=== PATIENT | male | born 1980 | race Caucasian/White ===

== ENCOUNTER → 2020-01-04 14:41 | Outpatient (BNVA) | payer OTHER, SELFPAY | PROVIDERS: Family Provider Physician Assistant; PCP Physician Assistant; Visit Provider Nurse Practitioner Psychiatric/Mental Health | DX: F51.01 Primary insomnia (principal); F90.2 Attention-deficit hyperactivity disorder, combined type; F33.1 Major depressive disorder, recurrent, moderate | CPT/HCPCS: 99214 ==

== ENCOUNTER → 2020-01-26 14:05 | Outpatient (BNVA) | payer OTHER, SELFPAY | PROVIDERS: Family Provider Physician Assistant; PCP Physician Assistant; Visit Provider Orthopaedic Surgery | DX: M25.532 Pain in left wrist (principal); Z48.89 Encounter for other specified surgical aftercare | CPT/HCPCS: 73110 ==

== ENCOUNTER → 2020-02-08 15:08 | Outpatient (BNVA) | payer OTHER, SELFPAY | PROVIDERS: Family Provider Physician Assistant; PCP Physician Assistant; Visit Provider Nurse Practitioner Psychiatric/Mental Health | DX: F51.01 Primary insomnia (principal); F90.2 Attention-deficit hyperactivity disorder, combined type; F33.1 Major depressive disorder, recurrent, moderate | CPT/HCPCS: 99214 ==

== ENCOUNTER 2020-02-11 06:15 | Day surgery (SDC) | payer OTHER, SELFPAY ==
[2020-02-10 13:43] VITALS: BMI 34.5
[2020-02-11] VITALS (7 sets, daily range): BP systolic 112–146; BP diastolic 71–89; PULSE 57–69; RESP 12–20; TEMP 36.3–36.6; O2SAT 96–100
--- NOTE | 2020-02-11 | XR_ITS ---
WS: [id number] XR wrist LT 1V [id number] REASON FOR EXAM: ORIF WRIST. CARPECTOMY FINDINGSCarpectomy performed absence of the scaphoid lunate triangularis. C-arm images were utilized for the procedure. XR/XR wrist LT 1V [id number] IMPRESSION: Carectomy utilizing C-arm images.
--- NOTE | 2020-02-11 | SCC_ITS ---
Procedure Done: Left wrist proximal row carpectomy 1.9 seconds of fluoroscopic guidance, for a cumulative dose of 0.05 mGy, was provided to Dr. Hermosillo by the radiology department. C-arm images of the left wrist were saved for the patient's permanent record. GEMINI
[2020-02-11] MEDS: sodium chloride 0.9% 1,000 ML 30 ML IV (06:39)
--- NOTE | 2020-02-11 06:58 | W.PM.OPSUD ---
Surgery/Procedure H&P Update DATE OF PROCEDURE: February 11, 2020 DATE H&P PERFORMED: 01/26/20 H&P UPDATE INFORMATION: I have reviewed H&P completed within last 30 days and I have examined patient prior to procedure PREOP DIAGNOSIS: Left SLAC wrist PRIMARY INDICATION FOR PROCEDURE: failed SL ligament repair PLANNED PROCEDURE: Operation Date: 02/11/20 08:10 Proposed Procedures p Left wrist proximal row Carpectomy 86749 S63.8X9A(Left) - Hayden Hermosillo DO
[2020-02-11] MEDS: gabapentin 300 mg Capsule PO (07:02)
--- NOTE | 2020-02-11 07:12 | ANES.PREANE2 ---
Pre-Anesthetic Assessment Pre-Anesthetic Assessment: Height/Weight: Height 1.85 m Weight 118.841 kg Temp Pulse Resp BP Pulse Ox 97.9 F 69 20 H 146/89 96 02/11/20 06:27 02/11/20 06:27 02/11/20 06:27 02/11/20 06:27 02/11/20 06:27 Preop Diagnosis: Left SLAC wrist Proposed Procedure: Operation Date: 02/11/20 08:10 Proposed Procedures p Left wrist proximal row Carpectomy 88832 S63.8X9A(Left) - Hayden Hermosillo DO Last intake: Intake Last Liquid Date 02/10/20 Last Liquid Time 19:00 Last Solid Date 02/10/20 Last Solid Time 19:00 Social: Packs per day: 1 Pack years: 25 Comment: quit 4 years Exam: Pre-Anes Outpt Exam: alert, oriented x 3, clear to auscultation bilaterally and regular rate & rhythm Airway: Submandibular: WNL Cervical ROM: WNL MP: 1 Pulmonary: Pulmonary: Sleep apnea Neuropsych: Neuropsych: Depression Anesthetic Plan: ASA status: 3 Anesthesia: General and Regional (specify below) Meds/Allergies Current Medications: Current Medications Generic Name Dose Route Start Last Admin Trade Name Freq PRN Reason Stop Dose Admin Sodium Chloride 1,000 mls @ 30 ml s/hr 02/11/20 06:30 02/11/20 06:39 Sodium Chloride 0.9% IV 02/12/20 06:29 30 mls/hr .Q24H DAMON Administration PFSH Anesthesia PFSH: Social History Smoking and tobacco status: former smoker Alcohol intake: current Alcohol intake frequency: holidays/special occasions only Household members: significant other and children Marital status: Life Partner Data Anesthesia Cardiac Studies: No Data to Display
[2020-02-11] MEDS: midazolam 1 mg/mL INJ 5 ML 5 MG IVP (07:25)
[2020-02-11] MEDS: fentaNYL 50 mcg/mL INJ 2mL 100 MCG IVP (07:27)
--- NOTE | 2020-02-11 07:34 | ANES.PROC ---
Anesthesia Procedures Procedure/Date: 02/11/20 Left Axillary Nerve Block Procedure Narrative: R&B's of left axillary nerve block for postop pain mx disc'd. Verbal and written consent obtained. Versed 2+1+1+1mg, Fentanyl 50+25ug. Nerve Stimulator at 0.8m AMPS. 30cc total volume Ropvicaine 0.5% + Lido 2% with epi in 3:1 ratio in 5cc increments without problems/complications Nerve Block ^: Nerve Block 1: Main Anesthesia: general anesthesia Time Out Performed: Yes Consent: requested by attending/covering physician, from patient, risks and benefits reviewed and patient agrees to proceed Nerve block location: axillary Anesthesia monitors applied: pulse oximetry and oxygen Nerve block position: supine Anesthetic Used: lidocaine 2%, ropivicaine 0.5% and with epi Amount of anesthesia used (mL): 30 Ultrasound used to: other Nerve Stimulator Used?: Yes Interscalene/Femoral BLK: 2 stimuplex 22 g needle used for position and inplane approach, visualize local anesthetic spread and no vascular puncture identified Injection: neg aspiration of heme Patient Tolerated Procedure: well and no complications Complications: none
[2020-02-11] MEDS: cefUROXime 1,500 MG in sodium chloride 0.9% (plus) 50 ML 100 MG IV (09:04)
--- NOTE | 2020-02-11 09:07 | P.OP_ITS ---
Operative Report Date of procedure: February 11, 2020 Pre-op Diagnosis: Left SLAC wrist Post-op diagnosis: same Post-op Findings: Failed scapholunate ligament repair resulting in SLAC wrist Procedure Done: Left wrist proximal row carpectomy Specimens removed/disposition: Scaphoid, lunate and triquetrum Pathology: none sent Surgeon: Hayden Hermosillo Anesthesia: General and Nerve Block (Preoperative axillary nerve block for postoperative analgesia) Estimated blood loss (mL): 10 Tourniquet time (min): 78 (at 250 mm Hg) Complications: No apparent complications Condition: stable Disposition: PACU (Then home) Brief History: 39-year-old white male who had sustained a left wrist scaphol unate ligament tear. He underwent reconstruction. In the postoperative period he is developed increasing pain and x-ray showed loss of reduction with widening once again of the scapholunate interval. Essentially he now has a slack wrist. I recommended to the patient he undergo proximal row carpectomy as a salvage procedure that would allow him to maintain motion of his wrist. This of surgery later noted to failure to leave all pain, stiffness, nerve/blood vessel/tendon injury, possible need for further surgery at a later date such as wrist fusion. All questions were answered patient agreeable to proceed with surgery. Procedure: 1.5 g Zinacef Patient identified. Surgical site signed. Surgical permit signed. Patient received an axillary nerve block for postoperative analgesia in the preoperative holding area. He received 1.5 g of Zinacef for antimicrobial prophylaxis. The patient was taken to the operating room. He was transferred to the operating room table. He was then placed under general anesthesia. A tourniquet was placed but the upper aspect of the right upper extremity. The right upper extremity was then sterilely prepped and draped usual fashion. A time out was performed. The operative limb was exsanguinated using Esmarch bandage and the tourniquet inflated to 250 mmHg pressure. A 15 cm dorsal midline incision was made over the left wrist using the previously used incision with a skin knife. Full-thickness skin flaps were made. Crossing veins were coagulated with bipolar cautery. We incised the extensor retinaculum. Extensor tendons were retracted radially and ulnarly. the dorsal wrist capsule nife followed by subperiosteal and capsular elevation was then performed radially and ulnarly at the distal radius and the proximal row of carpal bones radially and ulnarly. We applied 10 pounds of traction to the index and long fingers of the right hand. We removed sutures and broken suture anchors from the previous surgery. We then removed the scaphoid followed by the lunate then followed by the triquetrum. Fluoroscopic imaging demonstrated satisfactory resection of the proximal row of carpal bones. We visualized the intact flexor carpi radialis tendon, the radioscaphocapitate ligament and the articular surface of the pisiform. The cartilage of the head of the capitate was intact. The wound is irrigated with Betadine-containing saline solution followed by antibiotic containing saline solution. Traction was removed from the digits. Capsular closure was performed with sutures of 4-0 FiberWire. Extensor retinaculum closures performed with sutures of 3-0 undyed Vicryl. Skin was then closed with sutures of 3-0 undyed Vicryl followed by 4-0 nylon on skin. Antibiotic ointment was applied to the incision line followed by sterile dressings and a volar plaster splint was applied. The tourniquet was deflated during application of dressings. The patient was aroused from general anesthesia. He was taken to recovery room. He tolerated the procedure well. All instrument, needle and sponge counts were correct.
[2020-02-11] MEDS: neomycin-poly-bacitracin oint 28 gm 1 APPLIC TOPICAL (10:33)
== END 2020-02-11 11:53 | disposition home or self-care (01) ==
PROVIDERS: Family Provider Physician Assistant; PCP Physician Assistant; Visit Provider Orthopaedic Surgery
PROC: (CPT 25215; principal; 2020-02-11 08:10)
DX: M19.132 Post-traumatic osteoarthritis, left wrist (principal); F17.210 Nicotine dependence, cigarettes, uncomplicated; G47.30 Sleep apnea, unspecified
CPT/HCPCS: 25215; 12345; 73100; 76000; 96365; 96374; 96375; J0131; J0697; J1100; J1580; J2001; J2250; J2405; J2704; J2795; J3010; J3490; J7030

== ENCOUNTER → 2020-02-25 08:56 | Outpatient (BNVA) | payer OTHER, SELFPAY | PROVIDERS: Family Provider Physician Assistant; PCP Physician Assistant; Visit Provider Orthopaedic Surgery | DX: Z48.89 Encounter for other specified surgical aftercare (principal); M19.139 Post-traumatic osteoarthritis, unspecified wrist | CPT/HCPCS: 73110 ==

== ENCOUNTER → 2020-03-22 08:10 | Outpatient (BNVA) | payer OTHER, SELFPAY | PROVIDERS: Family Provider Physician Assistant; PCP Physician Assistant; Visit Provider Nurse Practitioner Psychiatric/Mental Health | DX: F51.01 Primary insomnia (principal); F90.2 Attention-deficit hyperactivity disorder, combined type; F33.1 Major depressive disorder, recurrent, moderate; F41.0 Panic disorder [episodic paroxysmal anxiety] | CPT/HCPCS: 99214 ==

== ENCOUNTER → 2020-04-06 07:59 | Outpatient (BNVA) | payer OTHER, SELFPAY | PROVIDERS: Family Provider Physician Assistant; PCP Physician Assistant; Visit Provider Orthopaedic Surgery | DX: Z48.89 Encounter for other specified surgical aftercare (principal); M19.139 Post-traumatic osteoarthritis, unspecified wrist | CPT/HCPCS: 73110 ==

== ENCOUNTER 2020-04-10 14:39 | Outpatient (RCR) | payer OTHER, SELFPAY | END 2020-04-23 23:59 | disposition home or self-care (01) | LOC: SOT 14:39 | PROVIDERS: PCP Physician Assistant; Referring Provider Orthopaedic Surgery; Visit Provider Orthopaedic Surgery | DX: M25.832 Other specified joint disorders, left wrist (principal) | CPT/HCPCS: 97035; 97110; 97140; 97166; 97530 ==

== ENCOUNTER → 2020-04-20 08:22 | Outpatient (BNVA) | payer OTHER, SELFPAY | PROVIDERS: PCP Physician Assistant; Visit Provider Nurse Practitioner Psychiatric/Mental Health | DX: F33.1 Major depressive disorder, recurrent, moderate (principal); F51.01 Primary insomnia; F90.2 Attention-deficit hyperactivity disorder, combined type | CPT/HCPCS: 99213 ==

== ENCOUNTER 2020-04-24 06:00 | Outpatient (RCR) | payer OTHER, SELFPAY | END 2020-05-09 23:00 | disposition home or self-care (01) | LOC: SOT 06:00 | PROVIDERS: PCP Physician Assistant; Visit Provider Orthopaedic Surgery | DX: Z47.89 Encounter for other orthopedic aftercare (principal) | CPT/HCPCS: 97035; 97140 ==

== ENCOUNTER 2020-05-15 15:51 | Outpatient (CLI) | payer OTHER, SELFPAY | END 2020-05-15 15:52 | disposition home or self-care (01) | LOC: SPT 15:52 | PROVIDERS: PCP Physician Assistant; Visit Provider Podiatrist Foot & Ankle Surgery | DX: Z47.89 Encounter for other orthopedic aftercare (principal) | CPT/HCPCS: L3030 ==

== ENCOUNTER → 2020-06-15 08:30 | Outpatient (BNVA) | payer OTHER, SELFPAY | PROVIDERS: PCP Physician Assistant; Visit Provider Nurse Practitioner Psychiatric/Mental Health | DX: F33.1 Major depressive disorder, recurrent, moderate (principal); F51.01 Primary insomnia; F90.2 Attention-deficit hyperactivity disorder, combined type | CPT/HCPCS: 99213 ==

== ENCOUNTER → 2020-06-29 08:25 | Outpatient (BNVA) | payer OTHER, SELFPAY | PROVIDERS: PCP Physician Assistant; Referring Provider Orthopaedic Surgery; Visit Provider Psychiatry & Neurology Neurology | DX: L21.9 Seborrheic dermatitis, unspecified (principal); L70.0 Acne vulgaris; G56.01 Carpal tunnel syndrome, right upper limb; Z87.891 Personal history of nicotine dependence | CPT/HCPCS: 95885; 95909; 99203 ==

== ENCOUNTER → 2020-08-10 08:10 | Outpatient (BNVA) | payer OTHER, SELFPAY | PROVIDERS: PCP Physician Assistant; Visit Provider Dermatology | DX: D48.5 Neoplasm of uncertain behavior of skin (principal); L40.8 Other psoriasis; L70.0 Acne vulgaris | CPT/HCPCS: 11102; 88304; 99213; 99214 ==

== ENCOUNTER → 2020-09-15 13:45 | Outpatient (BNVA) | payer OTHER, SELFPAY | PROVIDERS: PCP Physician Assistant; Visit Provider Orthopaedic Surgery | DX: Z11.59 Encounter for screening for other viral diseases (principal) | CPT/HCPCS: 87635 ==

== ENCOUNTER → 2020-09-18 08:24 | Outpatient (BNVA) | payer OTHER, SELFPAY | PROVIDERS: PCP Physician Assistant; Visit Provider Nurse Practitioner Psychiatric/Mental Health | DX: F33.1 Major depressive disorder, recurrent, moderate (principal); F51.01 Primary insomnia; F90.2 Attention-deficit hyperactivity disorder, combined type | CPT/HCPCS: 99213 ==

== ENCOUNTER 2020-09-21 08:17 | Day surgery (SDC) | payer OTHER, SELFPAY ==
[2020-09-20 12:13] VITALS: BMI 36.9
[2020-09-21 08:28] VITALS: BP 137/104; PULSE 63; RESP 18; TEMP 37.1; O2SAT 96
[2020-09-21] MEDS: sodium chloride 0.9% 1,000 ML 30 ML IV (08:38)
--- NOTE | 2020-09-21 09:25 | ANES.PREANE2 ---
Pre-Anesthetic Assessment Pre-Anesthetic Assessment: Height/Weight: Height 1.85 m Weight 127.006 kg Temp Pulse Resp BP Pulse Ox 98.8 F 63 18 137/104 96 09/21/20 08:28 09/21/20 08:28 09/21/20 08:28 09/21/20 08:28 09/21/20 08:28 Preop Diagnosis: Right carpal tunnel Proposed Procedure: Operation Date: 09/21/20 09:55 Proposed Procedures p Right Carpal Tunnel Release 21220 G56.01(Right) - Carmelo Miller MD Familial anesthetic complications: None Was Beta Shae taken within 24 hours: N/A Last intake: Intake Last Liquid Date 09/20/20 Last Liquid Time 20:00 Last Solid Date 09/20/20 Last Solid Time 17:00 Social: Social History: No alcohol and No tobacco Exam: Pre-Anes Outpt Exam: alert, oriented x 3, clear to auscultation bilaterally and regular rate & rhythm Airway: Cervical ROM: WNL MP: 3 Dentition: Full Pulmonary: Pulmonary: Sleep apnea (cpap) Metabolic: Metabolic: Morbid obesity Neuropsych: Neuropsych: Anxiety (takes propanol and zoloft) Anesthetic Plan: ASA status: 2 Anesthesia: MAC and Regional (specify below) ([place]vis block ) Risk of > 500 ml blood loss (7ml/kg in children): No PFSH Anesthesia PFSH: Medical History ADHD Attention-deficit hyperactivity disorder, combined type Major depressive disorder, recurrent episode, moderate with anxious distress Primary insomnia SLAC (scapholunate advanced collapse) of wrist Status post proximal row carpectomy of wrist Surgical History History of knee surgery History of toe surgery History of tonsillectomy Family History Mother Cancer Other CAD (coronary artery disease) Diabetes Hypertension Social History Smoking and tobacco status: former smoker Alcohol intake: current Alcohol intake frequency: holidays/special occasions only Household members: significant other and children Marital status: Life Partner History of recent travel: No Data Anesthesia Cardiac Studies: No Data to Display
--- NOTE | 2020-09-21 10:39 | W.PM.OPSFHP ---
Same Day Surgery H&P Indication for Procedure/HPI DATE OF PROCEDURE: September 21, 2020 CHIEF COMPLAINT/INDICATIONFOR SURGICAL PROCEDURE: Right carpal tunnel syndrome. This in pain right upper extremity PREOP DIAGNOSIS: Right carpal tunnel PLANNED PROCEDRUE: Operation Date: 09/21/20 09:55 Proposed Procedures p Right Carpal Tunnel Release 53807 G56.01(Right) - Carmelo Miller MD Medications/Allergies* Home Medications Medication Instructions Recorded Confirmed Type naproxen sodium 220 mg tablet 220 mg PO BID PRN 04/06/20 09/21/20 History Allergies/Adverse Reactions Allergy/AdvReac Type Severity Reaction Status Date / Time desvenlafaxine [From Pristiq] Allergy Unknown Unknown Verified 09/21/20 08:25 venlafaxine [From Effexor] Allergy Unknown short of Verified 09/21/20 08:25 breath ziprasidone [From Geodon] Allergy Unknown short of Verified 09/21/20 08:25 breath Pertinent History/Comorbid Conditions* Medical History (Updated 06/29/20 @ 09:20 by Bossman Lin MD) ADHD Attention-deficit hyperactivity disorder, combined type Major depressive disorder, recurrent episode, moderate with anxious distress Primary insomnia SLAC (scapholunate advanced collapse) of wrist Status post proximal row carpectomy of wrist Surgical History (Updated 01/10/20 @ 22:07 by Cooper Babcock DPM) History of knee surgery History of toe surgery History of tonsillectomy Family History (Updated 06/29/20 @ 13:37 by Lilly Duenas LPN) Diabetes CAD (coronary artery disease) Cancer Mother Hypertension Social History Smoking and tobacco status: former smoker Alcohol intake: current Alcohol intake frequency: holidays/special occasions only Household members: significant other and children Marital status: Life Partner History of recent travel: No Pertinent Exam Findings alert, oriented x 3, clear to auscultation bilaterally, regular rate & rhythm, operative site marked and procedure specific exam findings (Unchanged from July exam) Recommendations Surgery/Procedure today Coding Level of Care Code Acute 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
--- NOTE | 2020-09-21 11:29 | PM.OP ---
Operative Report Date of procedure: September 21, 2020 Pre-op Diagnosis: Right carpal tunnel Post-op diagnosis: same Post-op Findings: Same Procedure Done: Right carpal tunnel release Specimens removed/disposition: None Pathology: none sent Surgeon: Carmelo Miller Anesthesia: Nerve Block ([place] block) Estimated blood loss (mL): 2 Tourniquet time (min): 20 Findings: No masses or space-occupying lesions were seen within the carpal tunnel Condition: stable Brief History: Geoffrey had a history of numbness and pain in the right hand with EMG nerve conduction study suggesting mild carpal tunnel. He failed a corticosteroid injection. He has significant pain and limitations wishing to proceed with carpal tunnel release Procedure: Patient was taken to the operating room and anesthesia provided by the anesthesia service. She was prepped and draped with the arm exposed. A timeout was performed. A 3 cm long incision was made in line with the fourth ray from the distal edge of the carpal tunnel extending proximally. The subcutaneous fat and palmar fascia was divided with a scalpel blade. Under loupe magnification the ulnar neurovascular bundle was identified distally. A hemostat could be passed under the transverse carpal ligament allowing the distal 25% to be divided. A slotted guide was then passed beneath the transverse carpal ligament and the middle 50% divided. Blunt scissors were then passed over the guide freeing the proximal ligament. The tourniquet was deflated. Hemostasis provided with electrocautery. Wound edges were infiltrated with 10 cc of a half percent Marcaine solution. Skin edges were reapproximated with 3-0 Prolene. Sterile dressings were applied. The patient was taken to the recovery room in stable condition
[2020-09-21 11:33] VITALS: BP 107/70; PULSE 70; RESP 18; TEMP 36.1; O2SAT 98
[2020-09-21] MEDS: HYDROcodone-acetaminophen 5-325 mg Tablet 1 TAB PO (11:57)
[2020-09-21 12:00] VITALS: BP 120/87; PULSE 68; RESP 18; O2SAT 99
--- NOTE | 2020-09-21 12:10 | ANE.PACU2 ---
Inpatient post-anesthesia follow up: Airway intact: Yes Vital signs: Temperature 97.0 F Pulse Rate 68 Respiratory Rate 18 Blood Pressure 120/87 Pulse Oximetry 99 Oxygen Delivery Me thod Room Air Oxygen Flow Rate Fraction of Inspir ed Oxygen Hydration adequate: Yes Nausea and vomiting: No Pain level: 2 Mental status: Baseline
== END 2020-09-21 12:09 | disposition home or self-care (01) ==
PROVIDERS: PCP Physician Assistant; Visit Provider Orthopaedic Surgery
PROC: (CPT 64721; principal; 2020-09-21 09:55)
DX: G56.01 Carpal tunnel syndrome, right upper limb (principal); G47.30 Sleep apnea, unspecified; E66.01 Morbid (severe) obesity due to excess calories; Z68.36 Body mass index [BMI] 36.0-36.9, adult; F41.9 Anxiety disorder, unspecified; Z87.891 Personal history of nicotine dependence; Z82.49 Family history of ischemic heart disease and other diseases of the circulatory system; Z83.3 Family history of diabetes mellitus
CPT/HCPCS: 64721; 12345; 96365; J0690; J2250; J2704; J3010; J3490; J7030

== ENCOUNTER → 2020-12-05 08:23 | Outpatient (BNVA) | payer OTHER, SELFPAY | PROVIDERS: PCP Physician Assistant; Visit Provider Nurse Practitioner Psychiatric/Mental Health | DX: F33.1 Major depressive disorder, recurrent, moderate (principal); F51.01 Primary insomnia; F90.2 Attention-deficit hyperactivity disorder, combined type | CPT/HCPCS: 99213 ==

== ENCOUNTER → 2021-02-27 09:22 | Outpatient (BNVA) | payer OTHER, SELFPAY | PROVIDERS: PCP Physician Assistant; Visit Provider Nurse Practitioner Psychiatric/Mental Health | DX: F33.1 Major depressive disorder, recurrent, moderate (principal); F51.01 Primary insomnia; F90.2 Attention-deficit hyperactivity disorder, combined type; Z03.89 Encounter for observation for other suspected diseases and conditions ruled out; I44.0 Atrioventricular block, first degree | CPT/HCPCS: 99214 ==

== ENCOUNTER 2021-02-28 08:22 | Outpatient (CLI) | payer OTHER, SELFPAY ==
--- NOTE | 2021-02-28 08:48 | ECG_ITS ---
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
[2021-02-28 09:22] LABS: Estmated Average Glucose 103; Hemoglobin A1C 5.2 % (4.0-6.0)
[2021-02-28 09:33] LABS: Troponin T (5th) Once 7 ng/L (0-15)
[2021-02-28 09:41] LABS: Alanine Aminotransferase 38 U/L (0-41); Albumin Level 4.3 g/dL (3.5-5.2); Alkaline Phosphatase 77 IU/L (40-130); Aspartate Amino Transferase 25 U/L (0-40); Blood Urea Nitrogen 13 mg/dL (6-20); Calcium 9.4 mg/dL (8.5-10.5); Carbon Dioxide 24 mmol/L (22-29); Chloride 106 mmol/L (98-107); Chol HDL Ratio 6.34 mg/dL (1.0-5.00); Cholesterol 203 mg/dL (0-200); Globulin 2.8 g/dL (1.3-4.6); Glomerular Filtration Rate 92.5 mL/min (90-130); Glucose 103 mg/dL (65-115); HDL Cholesterol 32 mg/dL (60-100); LDL Cholesterol Calculated 142 mg/dL (50-129); LDL HDL Ratio 4.44 RATIO (0.00-3.22); Osmolality Calculated 286 mOsm/kg (285-295); Sodium 138 mmol/L (136-145); Thyroid Stimulating Hormone 1.42 uIU/mL (0.27-4.20); Total Bilirubin 0.4 mg/dL (0.15-1.2); Total Protein 7.1 g/dL (6.6-8.7); Triglycerides 146 mg/dL (0-150)
== END 2021-02-28 08:23 | disposition home or self-care (01) ==
PROVIDERS: PCP Physician Assistant; Visit Provider Nurse Practitioner Psychiatric/Mental Health
DX: Z03.89 Encounter for observation for other suspected diseases and conditions ruled out (principal); I45.10 Unspecified right bundle-branch block
CPT/HCPCS: 36415; 80053; 80061; 83036; 84443; 84484; 93005

== ENCOUNTER → 2021-03-15 08:07 | Outpatient (BNVA) | payer OTHER, SELFPAY | PROVIDERS: PCP Physician Assistant; Visit Provider Nurse Practitioner Psychiatric/Mental Health | DX: F33.1 Major depressive disorder, recurrent, moderate (principal); F51.01 Primary insomnia; F90.2 Attention-deficit hyperactivity disorder, combined type | CPT/HCPCS: 99214 ==

== ENCOUNTER 2021-03-19 10:39 | Outpatient (CLI) | payer OTHER, SELFPAY ==
--- NOTE | 2021-03-19 11:07 | ECG_ITS ---
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
== END 2021-03-19 10:40 | disposition home or self-care (01) ==
LOC: RT 10:43
PROVIDERS: PCP Physician Assistant; Visit Provider Nurse Practitioner Psychiatric/Mental Health
DX: Z03.89 Encounter for observation for other suspected diseases and conditions ruled out (principal)
CPT/HCPCS: 93005

== ENCOUNTER → 2021-03-20 07:29 | Outpatient (BNVA) | payer OTHER, SELFPAY | PROVIDERS: PCP Physician Assistant; Visit Provider Nurse Practitioner Psychiatric/Mental Health | DX: F33.1 Major depressive disorder, recurrent, moderate (principal); F51.01 Primary insomnia; F90.2 Attention-deficit hyperactivity disorder, combined type | CPT/HCPCS: 99214 ==

== ENCOUNTER → 2021-04-10 08:36 | Outpatient (BNVA) | payer OTHER, SELFPAY | PROVIDERS: PCP Physician Assistant; Visit Provider Nurse Practitioner Psychiatric/Mental Health | DX: F33.1 Major depressive disorder, recurrent, moderate (principal); F51.01 Primary insomnia; F90.2 Attention-deficit hyperactivity disorder, combined type | CPT/HCPCS: 99214 ==

== ENCOUNTER → 2021-11-05 08:39 | Outpatient (BNVA) | payer OTHER, SELFPAY | PROVIDERS: PCP Physician Assistant; Visit Provider Internal Medicine | DX: Z01.812 Encounter for preprocedural laboratory examination (principal); R10.13 Epigastric pain | CPT/HCPCS: 87635 ==

== ENCOUNTER 2021-11-09 09:34 | Day surgery (SDC) | payer OTHER, SELFPAY ==
[2021-11-07 14:13] VITALS: BMI 31.6
--- NOTE | 2021-11-09 09:50 | ANES.PREANE2 ---
Pre-Anesthetic Assessment Pre-Anesthetic Assessment: Height/Weight: Height 1.85 m Weight 108.862 kg Preop Diagnosis: Epigastric pain Proposed Procedure: Operation Date: 11/09/21 11:45 Proposed Procedures p EGD 47056 R10.13(Not Applicable) - Brendon Barillas MD Was Beta Shae taken within 24 hours: Yes Was Clonidine taken within 24 hours: N/A Social: Social History: No alcohol and No tobacco Exam: Pre-Anes Outpt Exam: alert, oriented x 3, clear to auscultation bilaterally and regular rate & rhythm Airway: Submandibular: WNL Cervical ROM: WNL MP: 2 Dentition: Full GI: GI: GERD Neuropsych: Neuropsych: Anxiety and Depression Anesthetic Plan: ASA status: 2 Anesthesia: MAC Risk of > 500 ml blood loss (7ml/kg in children): No PFSH Anesthesia PFSH: Medical History ADHD Attention-deficit hyperactivity disorder, combined type Major depressive disorder, recurrent episode, moderate with anxious distress Primary insomnia Psychiatric care SLAC (scapholunate advanced collapse) of wrist Status post proximal row carpectomy of wrist Surgical History History of knee surgery History of toe surgery History of tonsillectomy Family History Mother Cancer Other CAD (coronary artery disease) Diabetes Family history of premature coronary artery disease Hypertension Social History Smoking and tobacco status: former smoker Alcohol intake: current Alcohol intake frequency: holidays/special occasions only Household members: significant other and children Marital status: Life Partner History of recent travel: No Data Anesthesia Cardiac Studies: No Data to Display
[2021-11-09 10:51] VITALS: BP 138/90; PULSE 70; RESP 20; TEMP 36.5; O2SAT 98
[2021-11-09] MEDS: sodium chloride 0.9% 1,000 ML 30 ML IV (11:10)
--- NOTE | 2021-11-09 12:35 | P.HP_ITS ---
Same Day Surgery H&P Indication for Procedure/HPI DATE OF PROCEDURE: November 09, 2021 CHIEF COMPLAINT/INDICATIONFOR SURGICAL PROCEDURE: Abdominal pain PREOP DIAGNOSIS: Epigastric pain PLANNED PROCEDRUE: Operation Date: 11/09/21 11:45 Proposed Procedures p EGD 46852 R10.13(Not Applicable) - Brendon Barillas MD Medications/Allergies* Home Medications Medication Instructions Recorded Confirmed Type atorvastatin 20 mg tablet 20 mg PO DAILY 03/14/21 11/09/21 History vitamin B complex 1 tab PO DAILY 03/14/21 11/09/21 History coenzyme Q10 75 mg capsule 75 mg PO DAILY 09/06/21 11/09/21 History eszopiclone 3 mg tablet 3 mg PO .bedtime PRN tab 10/08/21 11/09/21 History melatonin 10 mg disintegrating 5 mg PO DAILY PRN 10/08/21 11/09/21 History tablet Allergies/Adverse Reactions Allergy/AdvReac Type Severity Reaction Status Date / Time desvenlafaxine [From Pristiq] Allergy Unknown Unknown Verified 09/27/21 10:41 venlafaxine [From Effexor] Allergy Unknown short of Verified 09/27/21 10:41 breath ziprasidone [From Geodon] Allergy Unknown short of Verified 09/27/21 10:41 breath Current Medications: Generic Name Dose Route Start Last Admin Trade Name Freq PRN Reason Stop Dose Admin Sodium Chloride 1,000 mls @ 30 mls/hr 11/09/21 09:45 11/09/21 11:10 Sodium Chloride 0.9% IV 30 mls/hr .Q24H DAMON Administration Pertinent History/Comorbid Conditions* Medical History (Updated 09/27/21 @ 11:00 by Brendon Barillas MD) ADHD Attention-deficit hyperactivity disorder, combined type Major depressive disorder, recurrent episode, moderate with anxious distress Primary insomnia Psychiatric care SLAC (scapholunate advanced collapse) of wrist Status post proximal row carpectomy of wrist Surgical History (Updated 01/10/20 @ 22:07 by Cooper Babcock DPM) History of knee surgery History of toe surgery History of tonsillectomy Family History (Updated 03/12/21 @ 14:57 by Serenity Su RN) Diabetes CAD (coronary artery disease) Family history of premature coronary artery disease Cancer Mother Hypertension Social History Smoking and tobacco status: former smoker Alcohol intake: current Alcohol intake frequency: holidays/special occasions only Household members: significant other and children Marital status: Life Partner History of recent travel: No Pertinent Exam Findings alert, oriented x 3, clear to auscultation bilaterally, regular rate & rhythm, operative site marked and procedure specific exam findings Recommendations Surgery/Procedure today Coding Level of Care Code Acute 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
[2021-11-09 13:35] VITALS: BP 120/80; PULSE 78; RESP 16; TEMP 36.4; O2SAT 97
[2021-11-09 13:52] VITALS: BP 134/83; PULSE 74; RESP 18; O2SAT 100
--- NOTE | 2021-11-09 14:04 | ANE.PACU2 ---
Inpatient post-anesthesia follow up: Airway intact: Yes Vital signs: Temperature 97.6 F Pulse Rate 74 Respiratory Rate 18 Blood Pressure 134/83 Pulse Oximetry 100 Oxygen Delivery Me thod Room Air Oxygen Flow Rate 5 Fraction of Inspir ed Oxygen Hydration adequate: Yes Nausea and vomiting: No Pain level: 1 Mental status: Baseline
== END 2021-11-09 14:05 | disposition home or self-care (01) ==
PROVIDERS: PCP Physician Assistant; Visit Provider Internal Medicine
PROC: 0DJ08ZZ Inspection of Upper Intestinal Tract, Via Natural or Artificial Opening Endoscopic (ICD-10-PCS; CPT 43235; principal; 2021-11-09 11:45)
DX: R10.13 Epigastric pain (principal); Z82.49 Family history of ischemic heart disease and other diseases of the circulatory system; Z83.3 Family history of diabetes mellitus; Z87.891 Personal history of nicotine dependence; F90.9 Attention-deficit hyperactivity disorder, unspecified type
CPT/HCPCS: 43235; 96360; 96361; J2704; J7030

== ENCOUNTER → 2024-02-20 11:21 | Outpatient (BNVA) | payer BC, SELFPAY | PROVIDERS: PCP Physician Assistant; Visit Provider Nurse Practitioner Psychiatric/Mental Health | DX: F90.2 Attention-deficit hyperactivity disorder, combined type (principal); Z79.899 Other long term (current) drug therapy; F41.1 Generalized anxiety disorder; F41.0 Panic disorder [episodic paroxysmal anxiety]; F33.1 Major depressive disorder, recurrent, moderate; F50.81 Binge eating disorder | CPT/HCPCS: 80307 ==

== ENCOUNTER → 2024-02-25 08:45 | Outpatient (BNVA) | payer BC, SELFPAY | PROVIDERS: PCP Physician Assistant; Referring Provider Nurse Practitioner Psychiatric/Mental Health; Visit Provider Internal Medicine Cardiovascular Disease | DX: F90.2 Attention-deficit hyperactivity disorder, combined type (principal) | CPT/HCPCS: 93005 ==

== ENCOUNTER 2024-12-27 14:44 | Emergency (ER) | payer OTHER, SELFPAY ==
[2024-12-27 14:51] VITALS: BP 153/99; PULSE 96; RESP 16; TEMP 36.8; O2SAT 96; BMI 34.9
--- NOTE | 2024-12-27 14:55 | ECG_ITS ---
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 Measurements Intervals [place] Rate: 62 P: 67 [place]: 214 QRS: -13 QRSD: 100 T: 39 QT: 385 QTc: 394 Interpretive Statements SINUS RHYTHM WITH FIRST DEGREE AV BLOCK Compared to ECG 02/25/2024 08:50:46 First degree AV block now present Electronically Signed On 12-30-2024 22:06:08 SENIOR C SOFTWARE DEVELOPER by Ciro Patino M.D. [email or web address] [id number]
--- NOTE | 2024-12-27 16:10 | ECG_ITS ---
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 Measurements Intervals [place] Rate: 62 P: 67 [place]: 214 QRS: -13 QRSD: 100 T: 39 QT: 385 QTc: 394 Interpretive Statements SINUS RHYTHM WITH FIRST DEGREE AV BLOCK Compared to ECG 02/25/2024 08:50:46 First degree AV block now present Electronically Signed On 12-30-2024 22:06:05 FLUORESCENT LIGHTING MODEL MAKER by Ciro Patino M.D. [id number]
[2024-12-27 16:53] VITALS: BP 145/95; PULSE 61; RESP 16; O2SAT 97
--- NOTE | 2024-12-27 17:16 | CTR_ITS ---
PROCEDURE INFORMATION: Exam: CT Head Without Contrast Exam date and time: 12/27/2024 5:55 PM Age: 44 years old Clinical indication: Dizziness; Additional info: Dizzy TECHNIQUE: Imaging protocol: Computed tomography of the head without contrast. Radiation optimization: All CT scans at this facility use at least one of these dose optimization techniques: automated exposure control; mA and/or kV adjustment per patient size (includes targeted exams where dose is matched to clinical indication); or iterative reconstruction. COMPARISON: No relevant prior studies available. RADIATION DOSE METRICS: Total DLP (mGy-cm): 1214.14 FINDINGS: Brain: No intracranial hemorrhage. No edema or mass effect. No significant deep white matter abnormality. Cerebral ventricles: Normal ventricles. Paranasal sinuses: The paranasal sinuses are clear. Mastoid air cells: The mastoid air cells are clear. Bones: No acute osseous abnormalities are seen. Soft tissues: 7 mm soft tissue nodule in the subcutaneous fat of the left inferior occipital scalp or upper neck, likely small lymph node. No acute soft tissue abnormalities. CT/CT head wo con* [id number] IMPRESSION: No acute intracranial pathology.
[2024-12-27] MEDS: meclizine 25 mg tablet 50 MG PO (17:22)
--- NOTE | 2024-12-27 17:25 | ECG_ITS ---
[facility] Test Date: 2024-12-27 Pat Name: Geoffrey Paz Department: Room: Gender: Male General Superintendent: : 1980 Requested By: Chan Marlow Order Number: [id number] Charles MD: Ciro Patino M.D. Measurements Intervals [place] Rate: 59 P: 39 [place]: 229 QRS: -20 QRSD: 102 T: 30 QT: 399 QTc: 396 Interpretive Statements SINUS BRADYCARDIA WITH FIRST DEGREE AV BLOCK Compared to ECG 12/27/2024 14:55:35 Sinus rhythm no longer present Electronically Signed On 12-30-2024 22:05:22 SITE PROJECT MANAGER by Ciro Patino M.D. [email or web address] [id number]
[2024-12-27 17:27] LABS: Basophils % 0.4 %; Eosinophils # 0.4 10^3/uL (0.0-0.8); Eosinophils % 3.5 %; Hematocrit 43.4 % (37-53); Lymphocytes # 3.2 10^3/uL (0.8-4.8); Lymphocytes % 31.2 %; Mean Corpuscular HGB Conc 33.4 g/dL (30-55); Mean Corpuscular Hemoglobin 30.8 pg (27-33); Mean Corpuscular Volume 92.1 fl (82-101); Mean Platelet Volume 10.1 fL (7.4-10.4); Monocytes % 9.4 %; Neutrophils # 5.57 10^3/uL (1.8-7.7); Neutrophils % 55.1 %; Nucleated Red Blood Cells % 0 %; Platelet Count 177 10^3/cmm (157-399); Red Blood Count 4.71 10^6/uL (3.85-5.65); Red Cell Distribution Width 12.9 % (12.1-15.1)
[2024-12-27 17:36] LABS: Alanine Aminotransferase 25 U/L (0-41); Albumin Level 4.3 g/dL (3.5-5.2); Alkaline Phosphatase 76 U/L (40-130); Anion Gap 13.1 (5-19); Aspartate Amino Transferase 17 U/L (0-40); Blood Urea Nitrogen 16 mg/dL (6-20); Calcium 9.4 mg/dL (8.5-10.5); Carbon Dioxide 25 mmol/L (22-29); Chloride 103 mmol/L (98-107); Creatinine Clr Calc Pharmacy 179.0864; Globulin 2.9 g/dL (1.3-4.6); Glomerular Filtration Rate 121.4 mL/min (90-130); Glucose 90 mg/dL (65-115); Osmolality Calculated 285 mOsm/kg (285-295); Potassium 4.1 mmol/L (3.5-5.1); Sodium 137 mmol/L (136-145); Total Bilirubin 0.4 mg/dL (0.15-1.2); Total Protein 7.2 g/dL (6.6-8.7)
--- NOTE | 2024-12-27 17:39 | ED_ITS ---
HPI - Dizziness 2 General: Chief Complaint: Dizziness Stated Complaint: dizzy, unstable b/p Time Seen by Provider: 12/27/24 17:05 Source: patient Mode of arrival: ambulatory Limitations: no limitations History of Present Illness: HPI Narrative: 44-year-old male states over the last 4 to 5 days has been having some feelings of lightheadedness with some mild dizziness. He states he is also had some off-and-on chest pain has been mild as well he went to urgent care and had sent him here due to hypertension does have a history of hypertension he denies any severe headache denies any shortness of breath denies any nausea. Associated symptoms: Reports chest pain; Denies chills, headache(s), nausea or vomiting Related Data Previous Rx's Medication Instructions Recorded Sole Supports #1 ea 05/15/20 propranolol 20 mg tablet 20 mg PO BID #180 tabs 07/15/24 sertraline 100 mg tablet (Zoloft) 100 mg PO .morning #90 tabs 08/19/24 topiramate 25 mg tablet (Topamax) 25 mg PO BEDTIME #90 tabs 08/19/24 methylphenidate HCl 40 mg biphasic 40 mg PO QAM 30 days #30 caps 12/07/24 50-50 capsule,extended release meclizine 50 mg tablet 50 mg PO BID PRN dizziness #14 tabs 12/27/24 Allergies Allergy/AdvReac Type Severity Reaction Status Date / Time desvenlafaxine [From Pristiq] Allergy Unknown Unknown Verified 12/27/24 13:41 venlafaxine [From Effexor] Allergy Unknown short of Verified 12/27/24 13:41 breath ziprasidone [From Geodon] Allergy Unknown short of Verified 12/27/24 13:41 breath Review of Systems 2 Const: Denies: fever(s), chills, body aches or change in appetite Eyes: Denies: blurry vision or eye discomfort ENMT: Denies: throat pain or dental pain Card: Reports: chest pain Resp: Denies: dyspnea GI: Denies: abdominal pain, nausea, vomiting or diarrhea Musc: Denies: neck pain or back pain Skin/Breast: Denies: rash Neuro: Reports: dizziness; Denies: headache(s) PFSH ED 2 PFSH: Medical History Generalized anxiety disorder with panic attacks Binge eating disorder Psychiatric care 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 Major depressive disorder, recurrent episode, moderate with anxious distress Attention-deficit hyperactivity disorder, combined type Primary insomnia Surgical History History of knee surgery History of toe surgery History of tonsillectomy Family History Mother Cancer Other CAD (coronary artery disease) Diabetes Family history of premature coronary artery disease Hypertension Social History Smoking and tobacco/nicotine status: never used tobacco/nicotine Alcohol intake: current Alcohol intake frequency: holidays/special occasions only Substance/Drug Use: never Marital status: Life Partner Physical Exam 2 Const: COMMON NORMALS: no acute distress, patient oriented x3 and healthy appearing HENMT: COMMON NORMALS: normocephalic and atraumatic HEAD & SCALP: n ormocephalic and atraumatic Neck/C-Spine: COMMON NORMALS: full ROM and supple Chest: COMMONS NORMALS: normal inspection of the chest Resp: COMMON NORMALS: normal respiratory effort Cardio: COMMON NORMALS: regular rate, regular rhythm and No murmurs present (Cardio) RATE: regular rate RHYTHM: regular rhythm GI: COMMON NORMALS: no masses Extremity: COMMON NORMALS: normal to inspection and full ROM Neuro: COMMON NORMALS: patient oriented x3, moves all extremities and no focal motor deficits SPEECH: speech normal GAIT: Yes Normal gait present M OTOR EXAM: 5/5 motor strength present throughout Psych: COMMON NORMALS: mental status grossly normal, Normal thought process present and cooperative THOUGHT PROCESS: Normal thought process present Skin: COMMON NORMALS: no rashes or lesions noted and no wounds GENERAL SKIN EXAM: no rashes or lesions noted Course 2 Vital Signs: Vital signs: Vital Signs Temperature 98.3 F 12/27/24 14:51 Pulse Rate 60 12/27/24 18:10 Respiratory Rate 16 12/27/24 18:10 Blood Pressure 131/90 12/27/24 18:10 Pulse Oximetry 94 12/27/24 18:10 Oxygen Delivery Me thod Room Air 12/27/24 14:51 MDM - Dizziness Medical Decision Making Patient presents here with dizziness patient was able to ambulate here without any difficulty he had no ataxia he has no signs of posterior stroke has been going on for roughly a week as well he felt improved here after meclizine and Valium his troponins here are negative he is stable for discharge follow-up PCP return if worsening he understands agrees to plan. Medical Records I reviewed the patient's medical records. Lab Data I reviewed the patient's lab results. 12/27/24 17:12 12/27/24 17:[address] 12/27/24 17:16 IMPRESSION: No acute intracranial pathology. Laboratory Results WBC 10.10 10^3/uL (3.29-11.43) 12/27/24 17:12 RBC 4.71 10^6/uL (3.85-5.65) 12/27/24 17:12 Hgb 14.50 g/dL (11.27-16.99) 12/27/24 17:12 Hct 43.4 % (37-53) 12/27/24 17:12 MCV 92.1 fl (82-101) 12/27/24 17:12 MCH 30.8 pg (27-33) 12/27/24 17:12 MCHC 33.4 g/dL (30-55) 12/27/24 17:12 RDW 12.9 % (12.1-15.1) 12/27/24 17:12 Plt Count 177 10^3/cmm (157-399) 12/27/24 17:12 MPV 10.1 fL (7.4-10.4) 12/27/24 17:12 Neut % (Auto) 55.1 % 12/27/24 17:12 Lymph % (Auto) 31.2 % 12/27/24 17:12 [place] % (Auto) 9.4 % 12/27/24 17:12 Eos % (Auto) 3.5 % 12/27/24 17:12 Baso % (Auto) 0.4 % 12/27/24 17:12 Neut # (Auto) 5.57 10^3/uL (1.8-7.7) 12/27/24 17:12 Lymph # (Auto) 3.2 10^3/uL (0.8-4.8) 12/27/24 17:12 [place] # (Auto) 1.0 10^3/uL (0.2-0.9) H 12/27/24 17:12 Eos # (Auto) 0.4 10^3/uL (0.0-0.8) 12/27/24 17:12 Baso # (Auto) 0.0 10^3/uL (0.0-0.1) 12/27/24 17:12 Nucleated RBC % (auto) 0 % 12/27/24 17:12 Nucleated RBCs # 0.0 /100WBC 12/27/24 17:12 Sodium 137 mmol/L (136-145) 12/27/24 17:12 Potassium 4.1 mmol/L (3.5-5.1) 12/27/24 17:12 Chloride 103 mmol/L (98-107) 12/27/24 17:12 Carbon Dioxide 25 mmol/L (22-29) 12/27/24 17:12 Anion Gap 13.1 (5-19) 12/27/24 17:12 BUN 16 mg/dL (6-20) 12/27/24 17:12 Creatinine 0.7 mg/dL (0.7-1.2) 12/27/24 17:12 GFR Calculation 121.4 mL/min (90-130) 12/27/24 17:12 Glucose 90 mg/dL (65-115) 12/27/24 17:12 Calculated Osmolality 285 mOsm/kg (285-295) 12/27/24 17:12 Calcium 9.4 mg/dL (8.5-10.5) 12/27/24 17:12 Total Bilirubin 0.4 mg/dL (0.15-1.2) 12/27/24 17:12 AST 17 U/L (0-40) 12/27/24 17:12 ALT 25 U/L (0-41) 12/27/24 17:12 Alkaline Phosphatase 76 U/L (40-130) 12/27/24 17:12 Troponin T Baseline < 6 ng/L (0-15) 12/27/24 17:12 Troponin T 120 Minute 6.00 ng/L (0-15) 12/27/24 18:50 Delta Troponin T 0.03454 ABS# (0-10) 12/27/24 18:50 Total Protein 7.2 g/dL (6.6-8.7) 12/27/24 17:12 Albumin 4.3 g/dL (3.5-5.2) 12/27/24 17:12 Globulin 2.9 g/dL (1.3-4.6) 12/27/24 17:12 All radiology interpretation(s) finalized by discharge EKG Data EKG 1: I personally reviewed and interpreted this EKG as follows: EKG interpretation date: 12/27/24 EKG interpretation time: 17:29 Interpretation: sinus john hr [address] elevation qrs 102 qtc 397 Discharge Plan Discharge Patient Disposition: Home Clinical Impression: Dizziness Condition: Stable Prescriptions: New meclizine 50 mg tablet 50 mg PO BID PRN (Reason: dizziness) Qty: 14 0RF No Action propranolol 20 mg tablet 20 mg PO BID Qty: 180 2RF Rx Instructions: Take one tablet twice per day sertraline [Zoloft] 100 mg tablet 100 mg PO .morning Qty: 90 2RF Rx Instructions: Take one tablet every morning topiramate [Topamax] 25 mg tablet 25 mg PO BEDTIME Qty: 90 2RF Rx Instructions: Take one tablet at bedtime (DME) Sole Supports See Rx Instructions .ROUTE .MEDSUPPLY Qty: 1 0RF Rx Instructions: As directed methylphenidate HCl 40 mg capsule,ER biphasic 50-50 40 mg PO QAM 30 Days Qty: 30 0RF Discharge Orders: Discharge ED (Routine); Ordered 12/27/24 Ordered By: Chan Marlow Referrals: Lynn Byrne PA [Primary Care Provider] - 4-7 days Discharge Diet: Advance as tolerated Discharge Activity: Resume usual activity Patient Instructions: Dizziness (ED) Coding Level of Care Code ED Access Nurse 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
[2024-12-27 18:10] VITALS: BP 131/90; PULSE 60; RESP 16; O2SAT 94
[2024-12-27 18:35] LABS: Troponin(5th) Baseline < 6 ng/L (0-15)
[2024-12-27] MEDS: diazePAM 2 mg Tablet PO (19:10)
[2024-12-27 19:18] LABS: Troponin 5 2HR Delta 0.00001 ABS# (0-10)
[2024-12-27 19:30] VITALS: BP 145/87; PULSE 59; RESP 16; O2SAT 97
== END 2024-12-27 19:36 | disposition home or self-care (01) ==
PROVIDERS: Emergency Provider Emergency Medicine; PCP Physician Assistant
DX: R42 Dizziness and giddiness (principal)
CPT/HCPCS: 36415; 70450; 80053; 84484; 85025; 93005; 99284; J8597

== ENCOUNTER → 2025-09-08 16:08 | Outpatient (BNVA) | payer OTHER, SELFPAY | PROVIDERS: PCP Family Medicine; Visit Provider Nurse Practitioner Psychiatric/Mental Health | DX: Z79.899 Other long term (current) drug therapy (principal); Z03.89 Encounter for observation for other suspected diseases and conditions ruled out | CPT/HCPCS: 80053; 80061; 82306; 83036; 84403; 84443 ==